=== PATIENT | male | born 1975 | race African-American/Black ===

== ENCOUNTER 2016-06-10 14:20 | Emergency (ER) | payer SELFPAY ==
[~2016-06-10] VITALS: Ht 182.9 cm; Wt 118.2 kg
[~2016-06-10 14:20] MED LIST: DESYREL 50MG50 MG PO; DESYREL DIVIDO300 MG PO; DOXYCYCLINE 10100 MG PO; FLEXERIL 1010 MG/TAB PO; HUMULIN 70/30 PE3 ML SC; INSHUMULIN7030KWIK SC; MINIPRESS 5M5 MG/CAP; MINIPRESS 5M5 MG/CAP PO; NORCO 325 MG-101 TAB PO; NORCO 325 MG-51 TAB PO; VASOTEC 5MG5 MG/TAB PO; ZOCOR 20MG20 MG PO; ZOHYDRO ER10 MG PO; [UNRECOGNIZED DRUG - REMARK]
[2016-06-10 14:22] VITALS: TEMP 98.8
[2016-06-10] MEDS ORDERED: ADALAT CC30 MG PO (14:56)
[2016-06-10] MEDS ORDERED: VASOTEC 10M10 MG/TAB PO (14:56)
[2016-06-10 15:52] LABS: BASO % 0.2 % (0.0-2.0); EOS % 0.1 % (0-4.0); GRAN # 10.7 (1.4-6.5); GRAN % 80.4 % (42.2-75.2); HEMATOCRIT 42.9 % (42.0-52.0); HEMOGLOBIN 13.9 g/dl (13.5-18.0); LYMPH # 1.4 (1.2-3.4); LYMPH % 10.2 % (20.0-51.0); MEAN CELL VOLUME 79 fl (80.0-100.0); MEAN CORPUSCULAR HEMOGLOBIN 26 pg (27.0-31.0); MEAN CORPUSCULAR HGB CONC 32 g/dl (33.0-37.0); MEAN PLATELET VOLUME 10.8 fl (7.4-10.4); MONO # 1.2 (0.1-0.6); MONO % 8.7 % (1.7-9.3); PLATELET COUNT 177 K/mm3 (130-400); RED BLOOD COUNT 5.46 M/mm3 (4.20-5.60); WHITE BLOOD COUNT 13.3 K/mm3 (4.8-10.8)
[2016-06-10 16:06] LABS: ADJUSTED CALCIUM 9.5 mg/dL (8.4-10.2); ALBUMIN 3.8 gm/dL (3.5-5.0); BILIRUBIN,TOTAL 1.2 mg/dL (0.0-1.0); C-REACTIVE PROTEIN 2.1 mg/dL (0.0-0.9); CALCIUM 9.3 mg/dL (8.4-10.2); CREATININE, serum 1.14 mg/dL (0.66-1.25); POTASSIUM 3.7 mmol/L (3.4-5.0); TOTAL PROTEIN 7.2 gm/dL (6.4-8.2)
[2016-06-10 16:08] LABS: INFLUENZA B NEGATIVE
[2016-06-10] MEDS ORDERED: TUSS PO (16:28)
[2016-06-10 16:44] LABS: PH 5 (5-8); SQUAMOUS EPITHELIAL None Seen /hpf; URINE APPEARANCE Hazy; URINE BACTERIA None Seen /hpf; URINE BILIRUBIN Negative (NEGATIVE); URINE BLOOD Negative (NEGATIVE); URINE COLOR Yellow; URINE GLUCOSE 1+ (NEGATIVE); URINE KETONE Trace (NEGATIVE); URINE RBC 0-2 /hpf; URINE UROBILINOGEN Negative (NEGATIVE)
[2016-06-10] MEDS ORDERED: LEVAQUIN 750MG750 M1 PO (17:25)
[2016-06-10 17:55] VITALS: BP 140/82; PULSE 98
== END 2016-06-10 17:56 | disposition home or self-care (01) ==
LOC: COL.ER 14:20
PROVIDERS: Emergency Medicine
DX: J20.9 Acute bronchitis, unspecified (principal); M54.5 Low back pain; E10.8 Type 1 diabetes mellitus with unspecified complications; Z79.4 Long term (current) use of insulin
CPT/HCPCS: J1885; J2550; J7030

== ENCOUNTER 2016-08-28 06:57 | Observation (INO) | payer MEDICAID ==
[~2016-08-28] VITALS: Ht 198.1 cm; Wt 125.6 kg
[~2016-08-28 06:57] MED LIST changes: +ADALAT CC30 MG PO; +LEVAQUIN 750MG750 M1 PO; +TUSS PO; +VASOTEC 10M10 MG/TAB PO
[2016-08-28] MEDS ORDERED: NOVOLIN 70/30 710 ML SQ ×2 (07:15→07:16)
[2016-08-28 07:53] LABS: HEMATOCRIT 42.4 % (42.0-52.0); HEMOGLOBIN 14.4 g/dl (13.5-18.0); MEAN CELL VOLUME 75 fl (80.0-100.0); MEAN CORPUSCULAR HEMOGLOBIN 26 pg (27.0-31.0); MEAN CORPUSCULAR HGB CONC 34 g/dl (33.0-37.0); MEAN PLATELET VOLUME 11.4 fl (7.4-10.4); PLATELET COUNT 130 K/mm3 (130-400); RED BLOOD COUNT 5.62 M/mm3 (4.20-5.60); REDCELL DISTRIBUTION WIDTH-CV 14.1 % (11.5-14.5); WHITE BLOOD COUNT 3.8 K/mm3 (4.8-10.8)
[2016-08-28 07:56] LABS: ADD PATHOLOGY DIFF REVIEW NO
[2016-08-28 08:05] LABS: ADJUSTED CALCIUM 9.2 mg/dL (8.4-10.2); ALBUMIN 3.8 gm/dL (3.5-5.0); BILIRUBIN,TOTAL 0.6 mg/dL (0.0-1.0); C-REACTIVE PROTEIN 0.8 mg/dL (0.0-0.9); CREATININE, serum 2.25 mg/dL (0.66-1.25); POTASSIUM 3.8 mmol/L (3.4-5.0); TOTAL PROTEIN 7.1 gm/dL (6.4-8.2)
[2016-08-28 08:13] LABS: TROPONIN-I 0.013 ng/mL (0.000-0.034)
[2016-08-28 08:19] VITALS: BP 94/52; PULSE 92
[2016-08-28 08:33] LABS: BAND 5 % (0-10); NEUTROPHILS 35 % (42.0-75.2); TOTAL CELLS COUNTED 100
[2016-08-28 09:54] VITALS: BP 88/55; PULSE 84; TEMP 98
[2016-08-28 12:00] VITALS: BP 111/88; PULSE 100; TEMP 98.4
[2016-08-28 16:33] VITALS: BP 124/70; PULSE 99; TEMP 98.3
[2016-08-28 20:06] VITALS: BP 118/75; PULSE 57; TEMP 98.5
[2016-08-29 00:24] VITALS: BP 101/43; PULSE 58; TEMP 98
[2016-08-29 01:03] VITALS: PULSE 86
[2016-08-29 06:01] VITALS: BP 117/68; PULSE 77; TEMP 98.5
[2016-08-29 07:41] VITALS: BP 135/92; PULSE 94; TEMP 98.3
[2016-08-29 08:52] VITALS: BP 135/92; PULSE 94; TEMP 98.3
== END 2016-08-29 13:35 | disposition home or self-care (01) ==
LOC: COL.ER 06:57 → SURG 08:40
PROVIDERS: Emergency Medicine
DX: A08.4 Viral intestinal infection, unspecified (principal); E11.65 Type 2 diabetes mellitus with hyperglycemia; Z79.4 Long term (current) use of insulin; E66.9 Obesity, unspecified; F25.9 Schizoaffective disorder, unspecified
CPT/HCPCS: 99222-AI; 99238; G0378; J1815; J7030